=== PATIENT | female | born 1980 | race Caucasian/White ===

== ENCOUNTER 2017-01-09 16:23 | Emergency (ER) | payer MEDICAID ==
--- NOTE | 2017-01-09 16:46 | Emergency Department Record ---
History of Present Illness - General Chief complaint: Pain Stated complaint: L SHOULDER PAIN Time Seen by Provider: 01/09/17 16:41 Source: Patient Mode of Arrival: Ambulatory Limitations: No limitations - History of Present Illness Initial comments: 36 yo female presents to ED with a CC of left shoulder/scapular pain for the past 1 month, worse today. Patient denies specific injury, denies weakness, numbness or tingling symptoms. Patient does report that her pain radiates down her left arm. 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 MD Complaint: Extremity pain Onset/Timin -: Month(s) Location: Left, Shoulder History of Same: No Radiation: Distal Severity scale (1-10): 6 Quality: Aching Consistency: Constant Improves with: Nothing Worsens with: Exertion Associated Symptoms: Denies other symptoms - Related Data Previous Rx's Medication Instructions Recorded Naproxen [Naprosyn] 500 mg PO Q12H #30 tab. 01/09/17 Allergies Allergy/AdvReac Type Severity Reaction Status Date / Time No Known Drug Allergies Allergy Verified 01/09/17 16:33 Travel Screening - Travel/Exposure Within Last 30 Days Have you traveled within the last 30 days?: No - Travel/Exposure Within Last Year Have you traveled outside the [place] in the last year?: No - Additonal Travel Details Have you been exposed to anyone with a communicable illness?: No Review of Systems Constitutional: Denies: Chills, Fever, Malaise, Night sweats Eyes: Denies: Eye discharge, Eye pain ENT: Denies: Congestion, Ear pain, Epistaxis Respiratory: Denies: Cough, Dyspnea Cardiovascular: Denies: Chest pain, Dyspnea on exertion Endocrine: Denies: Fatigue, Heat or cold intolerance Gastrointestinal: Denies: Abdominal pain, Nausea, Vomiting Genitourinary: Denies: Dysuria, Frequency, Hematuria, Incontinence Musculoskeletal: Reports: Arthralgia. Denies: Back pain, Gout, Joint swelling Skin: Denies: Bruising, Change in color Neurological: Denies: Abnormal gait, Confusion, Headache, Seizure Psychiatric: Denies: Anxiety Hematological/Lymphatic: Denies: Anemia, Blood Clots Past Medical History - SOCIAL HISTORY Smoking Status: Heavy tobacco smoker (>10/day) Alcohol Use: Occassional Drug Use: None - RESPIRATORY Hx Respiratory Disorders: No - CARDIOVASCULAR Hx Cardio Disorders: No - NEURO Hx Neuro Disorders: No - GI Hx GI Disorders: No - Hx Genitourinary Disorders: No - ENDOCRINE Hx Endocrine Disorders: No - MUSCULOSKELETAL Hx Musculoskeletal Disorders: No - PSYCH Hx Psych Problems: No - HEMATOLOGY/ONCOLOGY Hx Hematology/Oncology Disorders: No Family Medical History Any Significant Family History?: Yes Hx Cancer: Mother Physical Exam - General General Appearance: Alert, Oriented x3, Cooperative, Mild distress Limitations: No limitations - Head Head exam: Atraumatic, Normocephalic, Normal inspection Head exam detail: negative: Abrasion, Contusion, Rene's sign, General tenderness, Hematoma, Laceration - Eye Eye exam: Normal appearance. negative: Conjunctival injection, Periorbital swelling, Periorbital tenderness, Scleral icterus - ENT Ear exam: negative: Auricular hematoma, Auricular trauma Nasal Exam: negative: Active bleeding, Discharge, Dried blood, Foreign body Mouth exam: negative: Drooling, Laceration, Muffled voice, Tongue elevation - Neck Neck exam: Normal inspection. negative: Meningismus, Tenderness - Respiratory Respiratory exam: Normal lung sounds bilaterally. negative: Rales, Respiratory distress, Rhonchi, Stridor - Cardiovascular Cardiovascular Exam: Regular rate, Normal rhythm, Normal heart sounds - GI/Abdominal GI/Abdominal exam: Soft. negative: Rebound, Rigid, Tenderness - Rectal Rectal exam: Deferred - exam: Deferred - Extremities Extremities exam: Tenderness, Other (wire weaver cloth strength 5/5 and symmetric bilaterally ). negative: Calf tenderness, Pedal edema - Back Back exam: Reports: Other (TTP over the left scapula on examination, mild). Denies: CVA tenderness (R), CVA tenderness (L) - Neurological Neurological exam: Alert, Normal gait, Oriented X3 - Psychiatric Psychiatric exam: Normal affect, Normal mood - Skin Skin exam: Normal color. negative: Abrasion Type of lesion: negative: abrasion Course Vital Signs 01/09/17 16:26 Temperature 97.4 F L Pulse Rate 89 Respiratory 20 Rate Blood Pressure 124/93 Pulse Ox 97 - Reevaluation(s) Reevaluation #1: 01/09/17 17:20 Left shoulder: negative Patient updated on her radiology results, and appears stable for discharge. Patient was instructed to keep her appointment Sunday as scheduled to determine if further imaging (MRI) may be needed for further evaluation of her shoulder/ scapular pain symptoms. There is no clinical evidence for cord impingement syndrome on examination. 01/09/17 17:32 Disposition Disposition: Discharge Clinical Impression: Pain in scapula Disposition: Home, Self-Care Condition: (2) Stable Instructions: Shoulder Pain (ED) Additional Instructions: Return to ED if your symptoms worsen or if you have any concerns. Naprosyn as directed for your pain symptoms. Follow-up with your family doctor as scheduled Sunday. Prescriptions: Naproxen [Naprosyn] 500 mg PO Q12H #30 tab.dr Forms: Patient Portal Access Time of Disposition: 17:26
--- NOTE | 2017-01-12 14:27 | RADIOLOGY REPORT ---
EXAM: LEFT SHOULDER HISTORY: PAIN. TECHNIQUE: Four views of the left shoulder were performed. FINDINGS: No evidence of fracture or dislocation. No lytic or blastic lesion. IMPRESSION: NEGATIVE LEFT SHOULDER EXAMINATION. JOB NUMBER: [id number] MTDD
== END 2017-01-09 17:35 | disposition home or self-care (01) ==
LOC: ER 16:23
DX: M25.512 Pain in left shoulder (principal)
CPT/HCPCS: 99283

== ENCOUNTER 2017-12-12 20:16 | Emergency (ER) | payer MEDICAID ==
[2017-12-12] MEDS: CLINDAMYCIN 600MG/50ML PREMIX 600 MG/50 ML BAG IVPB ONE (20:45)
--- NOTE | 2017-12-12 20:47 | Emergency Department Record ---
History of Present Illness - General Chief complaint: ENT Stated complaint: ABSCESS TOOTH, DENTIST SENT IN FOR ANTIBIOTIC Time Seen by Provider: 12/12/17 20:41 Source: Patient Mode of Arrival: Ambulatory Limitations: No limitations - History of Present Illness Initial comments: 37 yo female presents to ED for evaluation of a dental abscess that has been worsening despite oral antibiotics. Patient reports that she contacted her dentist who told her to come to the ED for IV antibiotics. Patient reports that her swelling symptoms have continued to worsen despite antibiotics, denies health problems at her baseline. MD complaint: Tooth pain Onset/Timin -: Days(s) Location: Tooth # 1 - pain/swelling Severity: Moderate Quality: Aching Consistency: Constant Improves with: None Worsens with: Eating Context- Dental: History of dental caries - Related Data Home Medications Medication Instructions Recorded Confirmed Last Taken Ergocalciferol (Vitamin D2) 50,000 unit PO WEEKLY 12/12/17 12/12/17 Unknown [Vitamin D2] Escitalopram Oxalate [Lexapro] 10 mg PO DAILY 12/12/17 12/12/17 Unknown Gabapentin [Neurontin] 300 mg PO DAILY 12/12/17 12/12/17 Unknown Hydrocodone/APAP 5/325Mg [Pingree 1 each PO Q6H 12/12/17 12/12/17 Unknown 5Mg/325Mg] Ibuprofen [Motrin] 800 mg PO Q8H PRN 12/12/17 12/12/17 Unknown Tizanidine HCl 2 mg PO DAILY PRN 12/12/17 12/12/17 Unknown Topiramate [Trokendi Xr] 300 mg PO DAILY 12/12/17 12/12/17 Unknown Previous Rx's Medication Instructions Recorded Clindamycin HCl 300 mg PO QID #28 capsule 12/12/17 Allergies Allergy/AdvReac Type Severity Reaction Status Date / Time No Known Drug Allergies Allergy Verified 01/09/17 16:33 Travel Screening - Travel/Exposure Within Last 30 Days Have you traveled within the last 30 days?: No - Travel Symptoms Symptom Screening: None Review of Systems Constitutional: Denies: Chills, Fever, Malaise, Night sweats Eyes: Denies: Eye discharge, Eye pain ENT: Reports: Dental pain. Denies: Congestion, Ear pain, Epistaxis Respiratory: Denies: Cough, Dyspnea Cardiovascular: Denies: Chest pain, Dyspnea on exertion Endocrine: Denies: Fatigue, Heat or cold intolerance Gastrointestinal: Denies: Abdominal pain, Nausea, Vomiting Genitourinary: Denies: Incontinence, Retention Musculoskeletal: Denies: Arthralgia, Back pain, Gout, Joint swelling Skin: Denies: Bruising, Change in color Neurological: Denies: Abnormal gait, Confusion, Headache, Seizure Psychiatric: Denies: Anxiety Hematological/Lymphatic: Denies: Anemia, Blood Clots Past Medical History - SOCIAL HISTORY Smoking Status: Heavy tobacco smoker (>10/day) Alcohol Use: Occasional Drug Use: None - RESPIRATORY Hx Respiratory Disorders: No - CARDIOVASCULAR Hx Cardio Disorders: No - NEURO Hx Neuro Disorders: Yes Hx Seizures: Yes - GI Hx GI Disorders: No - Hx Genitourinary Disorders: No - ENDOCRINE Hx Endocrine Disorders: No - MUSCULOSKELETAL Hx Musculoskeletal Disorders: No - PSYCH Hx Psych Problems: No - HEMATOLOGY/ONCOLOGY Hx Hematology/Oncology Disorders: Yes Hx Blood Disorders: Yes (POLYCYTHEMIA) Hx Cancer: Yes (CLL,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 negative: Conjunctival injection, Periorbital swelling, Periorbital tenderness, Scleral icterus - ENT Ear exam: negative: Auricular hematoma, Auricular trauma Nasal Exam: negative: Active bleeding, Discharge, Dried blood, Foreign body Mouth exam: negative: Drooling, Laceration, Muffled voice, Tongue elevation Teeth exam: Dental tenderness #, Gingival enlargement Throat exam: negative: R peritonsillar mass, L peritonsillar mass Image of Mouth/Teeth: 1 - Gingical swelling to the upper right gingiva - Neck Neck exam: Normal inspection. negative: Meningismus, Tenderness - Respiratory Respiratory exam: Normal lung sounds bilaterally. negative: Rales, Respiratory distress, Rhonchi, Stridor - Cardiovascular Cardiovascular Exam: Regular rate, Normal rhythm, Normal heart sounds - GI/Abdominal GI/Abdominal exam: Soft. negative: Rebound, Rigid, Tenderness - Rectal Rectal exam: Deferred - exam: Deferred - Extremities Extremities exam: Normal inspection. negative: Calf tenderness, Pedal edema, Tenderness - Back Back exam: Denies: CVA tenderness (R), CVA tenderness (L) - Neurological Neurological exam: Alert, Normal gait, Oriented X3 - Psychiatric Psychiatric exam: Normal affect, Normal mood - Skin Skin exam: Normal color. negative: Abrasion Type of lesion: negative: abrasion Course Vital Signs 12/12/17 20:28 Temperature 97.9 F Pulse Rate 67 Respiratory 18 Rate Blood Pressure 147/84 Pulse Ox 98 - Reevaluation(s) Reevaluation #1: 12/12/17 20:52 Procedure Note: Right upper gingival region was anesthetized with 1.5 mL of 0.25 % Sensorcaine with good anesthesia. Abscess was then incised with #11 blade with moderate amount of purulent discharge. Patient tolerated the procedure well without complications. IV Clindamycin ordered to infuse as well. Disposition Disposition: Discharge Clinical Impression: Gingival abscess Disposition: Home, Self-Care Condition: (2) Stable Instructions: Dental Abscess (ED) Additional Instructions: Return to ED if your symptoms worsen or if you have any concerns. Clindamycin as directed. Follow-up with your dentist in 3-5 days as directed. Prescriptions: Clindamycin HCl 300 mg PO QID #28 capsule Forms: Patient Portal Access Time of Disposition: 20:47 Quality - Quality Measures Quality Measures: N/A - Blood Pressure Screening Does Patient Have Any of the Following: No Blood Pressure Classification: Normal BP Reading Systolic Measurement: 119 Diastolic Measurement: 70 Screening for High Blood Pressure: < Normal BP, F/U Not Required > [G8783]
== END 2017-12-12 21:17 | disposition home or self-care (01) ==
LOC: ER 20:16
DX: K05.219 Aggressive periodontitis, localized, unspecified severity (principal); F17.210 Nicotine dependence, cigarettes, uncomplicated
CPT/HCPCS: 41800; 96365; 99284

== ENCOUNTER 2018-03-11 21:15 | Emergency (ER) | payer MEDICAID ==
--- NOTE | 2018-03-11 21:35 | Emergency Department Record ---
History of Present Illness - General Chief Complaint: Chest Pain Stated Complaint: CHEST PAIN Time Seen by Provider: 03/11/18 21:23 Source: Patient Mode of Arrival: Ambulatory Limitations: No limitations - History of Present Illness Initial Comments: The patient is here due to CP for the last 2 hours. The pain is a sharp stabbing pain to the R anterior chest that is intermittent. It will last from 1- 2 minutes and then be gone for about 10 minutes. Presently the pain is gone. She denies any SOB, LUIS ENRIQUE, sweating or nausea with it but does have mild dizziness at times. The patient states she has no prior hx of similar issues but does have a PMHX of CLL in remission. She also does smoke a pack per day of tobacco. There is no hx of leg pain, swelling, or recent travel. MD Complaint: Chest pain Onset/Timin -: Hour(s) Onset: During rest Pain Location: Right chest Severity: Moderate Severity scale (1-10): 7 Quality: Sharp, Other (Stabbing.) Consistency: Constant Improves With: Nothing Worsens With: Nothing Context: New medications Other Symptoms: Other Treatments Prior to Arrival: None - Related Data Allergies Allergy/AdvReac Type Severity Reaction Status Date / Time Iodinated Contrast- Oral and Allergy ANAPHYLAXIS Verified 03/11/18 21:45 IV Dye Travel Screening - Travel/Exposure Within Last 30 Days Have you traveled within the last 30 days?: No - Travel Symptoms Symptom Screening: None Review of Systems Constitutional: Denies: Chills, Fever Eyes: Denies: Eye discharge ENT: Denies: Congestion Respiratory: Denies: Cough, Dyspnea Cardiovascular: Reports: Chest pain. Denies: Arrhythmia, Dyspnea on exertion Endocrine: Denies: Fatigue Gastrointestinal: Denies: Abdominal pain Genitourinary: Denies: Dysuria Musculoskeletal: Denies: Arthralgia Past Medical History - SOCIAL HISTORY Smoking Status: Heavy tobacco smoker (>10/day) Alcohol Use: Rare Drug Use: None - RESPIRATORY Hx Respiratory Disorders: No - CARDIOVASCULAR Hx Cardio Disorders: No - NEURO Hx Neuro Disorders: Yes Hx Seizures: Yes - GI Hx GI Disorders: No - Hx Genitourinary Disorders: No - ENDOCRINE Hx Endocrine Disorders: No - MUSCULOSKELETAL Hx Musculoskeletal Disorders: No - PSYCH Hx Psych Problems: No - HEMATOLOGY/ONCOLOGY Hx Hematology/Oncology Disorders: Yes Hx Blood Disorders: Yes (POLYCYTHEMIA) Hx Cancer: Yes (CLL,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 negative: Tenderness - Respiratory Respiratory exam: Normal lung sounds bilaterally. negative: Chest wall tenderness, Decreased breath sounds, Respiratory distress, Rhonchi, Stridor, Wheezes - Cardiovascular Cardiovascular Exam: Regular rate, Normal rhythm, Normal heart sounds - GI/Abdominal GI/Abdominal exam: Soft, Normal bowel sounds. negative: Tenderness - Extremities Extremities exam: Normal inspection, Full ROM, Normal capillary refill. negative: Calf tenderness, Pedal edema, Tenderness - Neurological Neurological exam: Alert, Normal gait, Oriented X3. negative: Abnormal gait, Altered, Motor sensory deficit - Psychiatric Psychiatric exam: negative: Anxious, Depressed, Flat affect - Skin Skin exam: negative: Rash Course Vital Signs 03/11/18 21:19 Temperature 98.3 F Pulse Rate [ 80 Pulse Ox Probe] Respiratory 20 Rate Blood Pressure 140/93 [Left Arm] Pulse Ox 100 - Reevaluation(s) Reevaluation #1: The patient is doing very well and has had no further R sided Cp. She does have an elevated D-dimer and due to the fact she has had an anaphylactic reaction to IV contrast she will need a VQ scan and leg dopplers. Since we cannot do that here she will need to be transferred somewhere else for those tests. The patient chose to be transferred to [facility] so we will contact them. 03/11/18 22:03 Reevaluation #2: I did speak with Dr. Luna at [facility] in [place] and he did accept the patient in an ER to ER transfer. They are able to perform the VQ scan and leg dopplers tonight so we will facilitate the transfer. 03/11/18 22:23 Reevaluation #3: The patient is doing a lot better at this time. She is hemodynamically stable with no pain or discomfort. Her ambulance is almost here for transport. 03/11/18 23:00 Medical Decision Making - Data Complexity MDM Data: Labs Ordered and/or Reviewed, X-Ray Ordered and/or Reviewed, EKG Ordered and/or Reviewed - Lab Data Result diagrams: 03/11/18 21:20 03/11/18 21:20 - EKG Data -: EKG Interpreted by Me EKG: No Acute Changes, Normal EKG - Radiology Data Radiology results: Report reviewed (CXR: Neg.) Disposition Disposition: Transfer Clinical Impression: Chest pain at rest Disposition: Home, Self-Care [facility] Accepting Physician: Jeremy Time Discussed w/Accepting Physician: 10:40 Condition: (2) Stable Instructions: Chest Pain (ED) Additional Instructions: Please proceed to [facility] in [place] for further evaluation. Forms: Patient Portal Access Time of Disposition: 22:24 Quality - Quality Measures Quality Measures: N/A - Blood Pressure Screening View Details: Yes Does Patient Have Any of the Following: No Blood Pressure Classification: Pre-Hypertensive BP Reading Systolic Measurement: 113 Diastolic Measurement: 89 Screening for High Blood Pressure: < Pre-Hypertensive BP, F/U Documented > [ G8950] Pre-Hypertensive Follow-up Interventions: Referral to alternative/primary care provider.
[2018-03-11 21:36] LABS: BASO % 0.5 % (0-6); EOS % 2.5 % (0-6); GRAN % 55.7 % (47-80); HEMATOCRIT 42.5 % (35.0-47.0); HEMOGLOBIN 13.8 gm/dl (11.6-16.0); MEAN CORPUSCULAR HEMOGLOBIN 29.9 pg (27-33); MEAN CORPUSCULAR HGB CONC 32.5 g/dl (32-36); MEAN PLATELET VOLUME 10.2 fl (7.4-10.4); MONO % 6.3 % (0-9); PLATELET COUNT 325 K/uL (130-400); RED BLOOD COUNT 4.62 M/uL (3.80-5.40); RED CELL DISTRIBUTION WIDTH 14.1 % (11.5-14.5); WHITE BLOOD COUNT W/O DIFF 13.3 K/uL (4.2-12.2)
[2018-03-11 21:42] LABS: INR 0.9; PARTIAL THROMBOPLASTIN TIME 26.6 SECONDS (24.5-39.1); PROTHROMBIN TIME (PATIENT) 10.2 SECONDS (9.5-12.1)
[2018-03-11] MEDS: 0.9 % SODIUM CHLORIDE 1,000 ML BAG IV ONE (21:42)
[2018-03-11] MEDS: KETOROLAC 30 MG/ML VIAL IVP ONE (21:44)
[2018-03-11 21:48] LABS: BLOOD UREA NITROGEN 20 mg/dL (6-20); CREATINE PHOSPHOKINASE 153 U/L (26-192); CREATININE 0.8 mg/dL (0.5-0.9); EST GLOMERULAR FILTRATION RATE > 60 mL/min; GLUCOSE,RANDOM 96 mg/dL (74-109)
[2018-03-11 21:50] LABS: CKMB 1.2 ng/mL (<3.77)
[2018-03-11] MEDS: ENOXAPARIN 100 MG/ML SYR SQ ONE (22:30)
--- NOTE | 2018-03-13 15:01 | RADIOLOGY REPORT ---
EXAM: CHEST HISTORY: INTERMITTENT SUBSTERNAL CHEST PAIN. TECHNIQUE: Two views of the chest were obtained. Comparison: None. FINDINGS: The heart is not enlarged and there is no mediastinal mass. No acute infiltrate or vascular congestion identified. IMPRESSION: NO ACUTE CARDIAC OR PULMONARY ABNORMALITY IDENTIFIED. JOB NUMBER: [id number] MTDD
== END 2018-03-11 23:30 | disposition home or self-care (01) ==
LOC: ER 21:15
DX: R07.9 Chest pain, unspecified (principal); C91.11 Chronic lymphocytic leukemia of B-cell type in remission; D75.1 Secondary polycythemia; F17.210 Nicotine dependence, cigarettes, uncomplicated
CPT/HCPCS: 99285 ×2; 96374; 96372; 82550; 85025; 85730; 85610; 82553; 80048; 84484; 85379; 71046; 93005; 93010; J1885; J1650; J7030

== ENCOUNTER 2019-09-13 10:39 | Emergency (ER) | payer MEDICAID ==
[2019-09-13] MEDS ORDERED: 0.9 % SODIUM CHLORIDE 1,000 ML BAG IV ONE (11:11)
[2019-09-13 11:29] LABS: INFLUENZA A NEGATIVE (NEGATIVE); INFLUENZA B NEGATIVE (NEGATIVE)
--- NOTE | 2019-09-13 11:29 | Emergency Department Record ---
History of Present Illness - General Chief complaint: Flu Like Symptoms Stated complaint: FLU LIKE SYMPTOMS Time Seen by Provider: 09/13/19 11:05 Source: Patient Mode of Arrival: Ambulatory Limitations: No limitations - History of Present Illness Initial comments: pt has been sick for 4 days with fevers, body aches, cough. she thinks she has the flu. she states her sats were low this am Complaint: Generalized weakness Onset/Timin -: Days(s) Severity: Moderate Severity scale (1-10): 10 Quality: Aching Consistency: Constant, Getting worse Improves with: None Worsens with: None Context: Recent illness Associated Symptoms: Fever/chills, Myalgias, Shortness of breath - Brice Coma Scale Eye Response: (4) Open spontaneously Motor Response: (6) Obeys commands Verbal Response: (5) Oriented Jayess Total: 15 - Related Data Home Medications Medication Instructions Recorded Confirmed Last Taken Naproxen [Naprosyn] 500 mg PO Q12H PRN 09/13/19 09/13/19 Unknown Allergies Allergy/AdvReac Type Severity Reaction Status Date / Time Iodinated Contrast Media Allergy ANAPHYLAXIS Verified 09/13/19 10:53 Travel Screening - Travel/Exposure Within Last 30 Days Have you traveled within the last 30 days?: No - Travel/Exposure Within Last Year Have you traveled outside the [place] in the last year?: No - Additonal Travel Details Have you been exposed to anyone with a communicable illness?: No - Travel Symptoms Symptom Screening: None Review of Systems Reviewed: No additional complaints except as noted below Constitutional: Reports: As per HPI. Denies: Chills, Fever, Malaise, Night sweats, Weakness, Weight change Eyes: Reports: As per HPI. Denies: Eye discharge, Eye pain, Photophobia, Vision change ENT: Reports: As per HPI. Denies: Congestion, Dental pain, Ear pain, Epistaxis, Hearing loss, Throat pain Respiratory: Reports: As per HPI. Denies: Cough, Dyspnea, Hemoptysis, Stridor, Wheezes Cardiovascular: Reports: As per HPI. Denies: Arrhythmia, Chest pain, Dyspnea on exertion, Edema, Murmurs, Orthopnea, Palpitations, Paroxysmal nocturnal dyspnea, Rheumatic Fever, Syncope Endocrine: Reports: As per HPI. Denies: Fatigue, Heat or cold intolerance, Polydipsia, Polyuria Gastrointestinal: Reports: As per HPI. Denies: Abdominal pain, Constipation, Diarrhea, Hematemesis, Hematochezia, Melena, Nausea, Vomiting Genitourinary: Reports: As per HPI. Denies: Abnormal menses, Discharge, Dyspareunia, Dysuria, Frequency, Hematuria, Incontinence, Retention, Urgency Musculoskeletal: Reports: As per HPI. Denies: Arthralgia, Back pain, Gout, Joint swelling, Myalgia, Neck pain Skin: Reports: As per HPI. Denies: Bruising, Change in color, Change in hair/nails, Lesions, Pruritus, Rash Neurological: Reports: As per HPI. Denies: Abnormal gait, Confusion, Headache, Numbness, Paresthesias, Seizure, Tingling, Tremors, Vertigo, Weakness Psychiatric: Reports: As per HPI. Denies: Anxiety, Auditory hallucinations, Depression, Homicidal thoughts, Suicidal thoughts, Visual hallucinations Hematological/Lymphatic: Reports: As per HPI. Denies: Anemia, Blood Clots, Easy bleeding, Easy bruising, Swollen glands Past Medical History - SOCIAL HISTORY Smoking Status: Heavy tobacco smoker (>10/day) Alcohol Use: None Drug Use: None - RESPIRATORY Hx Respiratory Disorders: Yes Hx Pulmonary Embolism: Yes - CARDIOVASCULAR Hx Cardio Disorders: No - NEURO Hx Neuro Disorders: Yes Hx Seizures: Yes - GI Hx GI Disorders: No - Hx Genitourinary Disorders: No - ENDOCRINE Hx Endocrine Disorders: No - MUSCULOSKELETAL Hx Musculoskeletal Disorders: No - PSYCH Hx Psych Problems: No - HEMATOLOGY/ONCOLOGY Hx Hematology/Oncology Disorders: Yes Hx Blood Disorders: Yes (POLYCYTHEMIA) Hx Cancer: Yes (CLL,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 negative: External canal tenderness Nasal Exam: Normal inspection. negative: Discharge, Sinus tenderness Mouth exam: Normal external inspection, Tongue normal Teeth exam: Normal inspection. negative: Dental caries Throat exam: Normal inspection. negative: Tonsillar erythema, Tonsillar exudate - Neck Neck exam: Normal inspection, Full ROM. negative: Tenderness - Respiratory Respiratory exam: Normal lung sounds bilaterally. negative: Respiratory distress - Cardiovascular Cardiovascular Exam: Regular rate, Normal rhythm, Normal heart sounds - GI/Abdominal GI/Abdominal exam: Soft, Normal bowel sounds. negative: Tenderness - Rectal Rectal exam: Deferred - exam: Deferred - Extremities Extremities exam: Normal inspection, Full ROM, Normal capillary refill. negative: Tenderness - Back Back exam: Reports: Normal inspection, Full ROM. Denies: Muscle spasm, Rash noted, Tenderness - Neurological Neurological exam: Alert, CN II-XII intact, Normal gait, Oriented X3 - Psychiatric Psychiatric exam: Normal affect, Normal mood - Skin Skin exam: Dry, Intact, Normal color, Warm Course Vital Signs 09/13/19 09/13/19 10:53 10:56 Temperature 98.8 F 98.8 F Pulse Rate 87 Pulse Rate [ 87 Right] Respiratory 18 18 Rate Blood Pressure 130/82 Blood Pressure 130/82 [Right Arm] Pulse Ox 91 L 91 L - Reevaluation(s) Reevaluation #1: 09/13/19 13:13 pt feels much better Medical Decision Making - Lab Data Result diagrams: 09/13/19 11:27 09/13/19 11:27 Disposition Disposition: Discharge Clinical Impression: Viral syndrome Disposition: Home, Self-Care Condition: (1) Good Instructions: Viral Syndrome (ED), Shortness of Breath (ED) Additional Instructions: follow up with family doctor. return sooner if worse. stop smoking. tylenol and motrin as needed Forms: Patient Portal Access Quality - Quality Measures Quality Measures: N/A - Blood Pressure Screening Does Patient Have Any of the Following: No Blood Pressure Classification: Pre-Hypertensive BP Reading Systolic Measurement: 130 Diastolic Measurement: 82 Screening for High Blood Pressure: < Pre-Hypertensive BP, F/U Documented > [[id number]] Pre-Hypertensive Follow-up Interventions: Follow-up with rescreen every year.
[2019-09-13 11:38] LABS: HEMATOCRIT 47.2 % (35.0-47.0); HEMOGLOBIN 15.1 gm/dl (11.6-16.0); MEAN CELL VOLUME 93.1 fl (81-97); MEAN CORPUSCULAR HEMOGLOBIN 29.8 pg (27-33); MEAN PLATELET VOLUME 10.7 fl (7.4-10.4); PLATELET COUNT 196 K/uL (130-400); RED BLOOD COUNT 5.07 M/uL (3.80-5.40); RED CELL DISTRIBUTION WIDTH 13.7 % (11.5-14.5); WHITE BLOOD COUNT W/O DIFF 9.4 K/uL (4.2-12.2)
[2019-09-13 11:48] LABS: PLATELET ESTIMATE NORMAL (NORMAL)
[2019-09-13 11:49] LABS: BLOOD UREA NITROGEN 11 mg/dL (6-20); CREATININE 0.6 mg/dL (0.5-0.9); EST GLOMERULAR FILTRATION RATE > 60 mL/min
[2019-09-13 11:52] LABS: GLUCOSE,RANDOM 108 mg/dL (74-109)
--- NOTE | 2019-09-13 12:19 | RADIOLOGY REPORT ---
EXAMINATION: Two View Chest Radiographs EXAM DATE: 09/13/2019 11:48 AM TECHNIQUE: Frontal and lateral views INDICATION: sob COMPARISON: None ENCOUNTER: Not applicable FINDINGS: The heart, mediastinum, and pulmonary vasculature are normal. No lung consolidation or pleural effu sions are present. IMPRESSION: No acute process. Dictated by: Griffin Alvarado DO on 09/13/2019 12:17 PM. .
[2019-09-13] MEDS ORDERED: IPRATROPIUM/ALBUTEROL (0.5MG/3MG) NEB INH ONE (12:35)
[2019-09-13] MEDS ORDERED: IBUPROFEN 600 MG TABLET PO ONE (12:37)
[2019-09-13] MEDS ORDERED: ALBUTEROL HFA 8 GM INHALER INH ONE (13:10)
== END 2019-09-13 13:30 | disposition home or self-care (01) ==
LOC: ER 10:39
DX: B34.9 Viral infection, unspecified (principal); R50.81 Fever presenting with conditions classified elsewhere; R06.02 Shortness of breath; R05 Cough; R53.1 Weakness; F17.210 Nicotine dependence, cigarettes, uncomplicated
CPT/HCPCS: 71046; 80048; 85027; 87400; 94640; 94664; 99284; J7030